=== PATIENT | female | born 1935 | race Caucasian/White ===

== ENCOUNTER 2020-05-21 10:52 | Emergency (ER) | payer OTHER, SELFPAY ==
[~2020-05-21] VITALS: Ht 165.1 cm; Wt 70.3 kg
[2020-05-21 11:10] VITALS: Ht 165.1 cm; Wt 70.3 kg
[2020-05-21 11:52] LABS: UA SPECIFIC GRAVITY 1.025 (1.005-1.035); microscopic required? YES; urine erythrocyte NEGATIVE (NEGATIVE)
[2020-05-21 11:54] LABS: PLATELET COUNT 239 x10^3mcL (179-408)
[2020-05-21 12:00] LABS: BASOPHIL % 0 % (0.2-1.3)
[2020-05-21 12:31] LABS: CALCIUM 8.1 mg/dL (8.5-10.1); CARBON DIOXIDE 23.2 mmol/L (21-32); CHLORIDE SERUM 104 mmol/L (98-107); CREATININE SERUM 0.9 mg/dL (0.6-1.0); GLUCOSE SERUM 112 mg/dL (74-106); POTASSIUM SERUM 4.5 mmol/L (3.5-5.1); SODIUM SERUM 138 mmol/L (136-145)
[2020-05-21 12:36] LABS: ALBUMIN 3.3 g/dL (3.4-5.0); ALKALINE PHOSPHATASE 37 U/L (46-116); ALT/SGPT 26 U/L (14-59); AST/SGOT 16 U/L (15-37); BILIRUBIN TOTAL 2.7 mg/dL (0.20-1.00); LIPASE 200 IU/L (73-393); TOTAL PROTEIN, SERUM 7.1 g/dL (6.4-8.2)
[2020-05-21 14:54] VITALS: BP 130/74
== END 2020-05-21 14:54 | disposition home or self-care (01) ==
LOC: ED 10:52
PROVIDERS: Emergency Medicine
DX: N39.0 Urinary tract infection, site not specified (principal); J45.909 Unspecified asthma, uncomplicated; K57.30 Diverticulosis of large intestine without perforation or abscess without bleeding; Z88.6 Allergy status to analgesic agent; Z88.0 Allergy status to penicillin; Z88.1 Allergy status to other antibiotic agents; Z88.8 Allergy status to other drugs, medicaments and biological substances; Z90.49 Acquired absence of other specified parts of digestive tract; Z90.710 Acquired absence of both cervix and uterus; Z90.89 Acquired absence of other organs
CPT/HCPCS: J1956; J7030